=== PATIENT | female | born 1940 | race Caucasian/White ===

== ENCOUNTER 2017-08-11 11:44 | Inpatient (IN) ==
--- NOTE | 2017-08-11 11:50 | Emergency Department Note ---
Disposition Clinical Impression: Cerebrovascular accident Qualifiers: CVA mechanism: unspecified Qualified Code(s): I63.9 - Cerebral infarction, unspecified UTI (urinary tract infection) Qualifiers: Urinary tract infection type: acute cystitis Hematuria presence: without hematuria Qualified Code(s): N30.00 - Acute cystitis without hematuria Disposition: Admitted As Inpatient Condition: Serious Referrals: Anibal Salas DO [Primary Care Provider] - Time of Disposition: 13:56 Neuro HPI - General Chief Complaint: ED Altered Mental Status Stated Complaint: AMS Time Seen by Provider: 08/11/17 11:45 Source: family, EMS Mode of arrival: EMS Limitations: other (Aphasia) Nursing Notes Reviewed: Yes Vital Signs Reviewed: Yes - History of Present Illness HPI Narrative: 77-year-old was found on the bathroom floor by granddaughter this morning. The last time someone talked to her was last night. Patient according to squad has right-sided weakness and aphasia and ignoring her right side, right-sided facial droop. The patient does have a history of atrial fibrillation. Patient is on Xarelto. The patient did under a few words on transfer from the [facility] gurney to the bed. [facility] indicates that that was the first word she had spoken. Symptom Onset Unknown: Yes Timing confirmed by: family member Location: speech, right arm, right leg History of same: No Severity: moderate Quality: weakness Symptoms Improving: Yes Improves with: time Worsens with: none On Anticoagulants: Yes (Xarelto) Associated symptoms: Reports: denies other symptoms - Related Data Home Medications: Home Medications Medication Instructions Recorded Confirmed Allopurinol [Zyloprim 300 MG] 300 mg PO DAILY 06/21/15 08/11/17 Cyanocobalamin (B-12) [Vitamin B12] 1,000 mcg IM QWEEK 06/21/15 08/11/17 Diclofenac Potassium 50 mg PO DAILY 06/22/15 08/11/17 cloNIDine HCl [CloNIDine HCl] 0.1 mg PO DAILY 06/22/15 08/11/17 Liothyronine Sodium [Cytomel] 5 mcg PO DAILY 08/11/17 08/11/17 Rivaroxaban [Xarelto] 15 mg PO DAILY 08/11/17 08/11/17 Previous Rx's Medication Instructions Recorded Aspirin Enteric Coated [Aspirin EC] 81 mg PO DAILY #30 tablet. 06/23/15 Diltiazem CD (24hr) [Cardizem CD] 240 mg PO DAILY #30 cap.er.24h 06/23/15 Allergies/Adverse Reactions: Allergies Allergy/AdvReac Type Severity Reaction Status Date / Time No Known Allergies Allergy Verified 08/11/17 13:46 All systems ED: reviewed and negative except as stated. Constitutional: Denies: fever, chills, weakness, weight change Eyes: Denies: eye pain, eye discharge, vision change ENT ED: Denies: ear pain, throat pain, dental pain, hearing loss, epistaxis, congestion, dysphagia Cardiovascular: Denies: chest pain, palpitations, dyspnea on exertion, edema, syncope Respiratory: Denies: cough, dyspnea, wheezes, hemoptysis, stridor Gastrointestinal: Denies: abdominal pain, nausea, vomiting, diarrhea, constipation, hematemesis, melena, hematochezia Genitourinary: Denies: dysuria, frequency, hematuria, discharge Musculoskeletal: Denies: back pain, neck pain, arthralgia, myalgia Integumentary: Denies: rash, abrasion, lesions Neurological: Reports: weakness, confusion, other (Aphasic). Denies: headache, numbness, paresthesias, abnormal gait, vertigo Psychiatric: Denies: anxiety, depression, suicidal thoughts, homicidal thoughts , auditory hallucinations, visual hallucinations Endocrine: Denies: fatigue Hematological/Lymphatic: Denies: easy bleeding, easy bruising Allergic/Immunologic: Denies: facial swelling, urticaria Past Medical History - Past Medical History Medical history: Reports: CVA, hypertension, thyroid disease Surgical history: Reports: Psychiatric history: Reports: no psych history - Social History Smoking Status: Unknown if ever smoked Smokeless Tobacco Status: No Alcohol use: Reports: none Drug use: Reports: none Physical Exam - General Limitations: altered mental status General appearance: alert - Head Head exam: atraumatic, normocephalic, normal inspection - Eye Eye exam: Present: normal appearance, PERRL, EOMI - ENT ENT exam: normal exam, normal oropharynx, mucous membranes moist - Neck Neck exam: Present: normal inspection, full ROM, trachea midline - Chest Chest inspection: Present: normal inspection, symmetric chest wall rise - Respiratory Respiratory exam: Present: normal lung sounds bilaterally - Cardiovascular Cardiovascular exam: Present: regular rate, irregular rhythm - Abdominal Exam Abdominal exam: Present: soft, Non-Tender. Absent: tenderness, distention, guarding, rebound, rigidity - Extremities Exam Extremities exam: Present: normal inspection, full ROM. Absent: tenderness, pedal edema - Expanded Lower Extremity Exam Neurovascular/Tendon exam: Present: motor deficit (Right sided arm drift), other (Aphasic). Absent: sensory deficit, tendon deficit Gait: not tested/not observed - Back Exam Back exam: Present: normal inspection, full ROM. Absent: tenderness - Neurological Exam Neurological exam: Present: alert, motor sensory deficit - Psychiatric Psychiatric exam: Present: normal affect, normal mood - Skin Skin exam: Present: warm, dry, intact, normal color Course - Reevaluation(s) Reevaluation #1: 77-year-old found on the floor this morning with aphasia and right-sided weakness and right-sided neglect. Onset is unknown. NIH score is 11. Consultation obtained with neurology. Patient will be admitted. Time: 13:55 - Consultations Consultation #1: Discussed with Dr. Agosto neurology, patient is not a TPA candidate due to the unknown onset and treatment with anticoagulant Time: 13:55 Consultation #2: Discussed with Dr. Headley, admit Time: 14:09 Vital Signs Temperature 98.8 F 08/11/17 11:46 Pulse Rate 86 08/11/17 11:46 Respiratory Rate 17 08/11/17 11:46 Blood Pressure 186/80 08/11/17 11:46 O2 Sat by Pulse Oximetry 99 08/11/17 11:46 Temperature 98.8 F 08/11/17 11:46 Pulse Rate 78 08/11/17 13:13 Respiratory Rate 16 08/11/17 13:13 Blood Pressure 150/74 08/11/17 13:13 O2 Sat by Pulse Oximetry 98 08/11/17 13:13 Oxygen Delivery Oxygen Delivery Nasal Cannula Neuro Symptoms/Deficit - Lab Data Lab results reviewed: Yes I reviewed the patient's lab results. Result diagrams: 08/11/17 12:14 08/11/17 12:14 Lab Results 08/11/17 08/11/17 08/11/17 Range/Units 12:14 12:14 12:14 WBC 15.8 H (4.3-11.1) K/mcL RBC 4.29 (3.82-4.97) M/mcL Hgb 11.3 L (11.5-15.4) g/dL Hct 35.8 (35.3-44.9) % MCV 83.4 (83.0-100.0) fL MCH 26.3 L (28.0-33.3) pg MCHC 31.6 (31.6-35.5) g/dL RDW 14.9 H (11.5-14.5) % Plt Count 358 (140-400) K/mcL MPV 9.2 L (9.4-12.4) fL Immature Gran % 0.6 (0-4) % Seg Neutrophils % 82.7 % Lymphocytes % 11.5 % Monocytes % 5.0 % Eosinophils % 0.0 % Basophils % 0.2 % Neutrophils # 13.1 H (1.6-8.9) K/mcL Lymphocytes # 1.8 (0.6-4.6) K/mcL Monocytes # 0.8 (0.0-1.3) K/mcL Eosinophils # 0.0 (0.0-0.6) K/mcL Basophils # 0.0 (0.0-0.2) K/mcL PT 11.1 (9.4-12.1) Seconds INR 1.0 APTT 25.6 L (26.0-36.0) Seconds Sodium 136 (136-145) mEq/L Potassium 3.5 (3.5-5.1) mEq/L Chloride 104 (98-107) mEq/L Carbon Dioxide 24 (23-29) mEq/L BUN 27 H (8-23) mg/dL Creatinine 1.13 (0.60-1.20) mg/dL Est GFR ( Amer) 56 L (> 60) Est GFR (Non-Af Amer) 46 L (> 60) BUN/Creatinine Ratio 24 (6-26) Glucose 114 H (70-105) mg/dL Calculated Osmolality 288 (280-300) Calcium 9.2 (8.6-10.3) mg/dL Total Bilirubin 0.6 (0.3-1.0) mg/dL Direct Bilirubin 0.2 (0.0-0.2) mg/dL Indirect Bilirubin 0.4 (0.0-1.2) mg/dL AST 16 (13-39) Units/L ALT 13 (7-52) Units/L Alkaline Phosphatase 102 (34-104) Units/L Creatine Kinase (30-223) Units/L Troponin I 0.03 (< 0.04) ng/mL Serum Total Protein 6.6 (6.4-8.9) g/dL Albumin 4.0 (3.5-5.7) g/dL Globulin 2.6 (2.4-3.5) g/dL Albumin/Globulin Ratio 1.5 (1.1-2.2) Urine Color (Yellow) Urine Clarity (Clear) Urine pH (5.0-8.0) pH Units Ur Specific [place] (1.010-1.025) Urine Protein (Neg-Trace) mg/dL Urine Glucose (UA) (Normal) mg/dL Urine Ketones (Negative) mg/dL Urine Blood (Negative) Urine Nitrite (Negative) Urine Bilirubin (Negative) Urine Urobilinogen (Normal) mg/dL Ur Leukocyte Esterase (Negative) Urine Microscopic RBC (0-3) per hpf Urine Microscopic WBC (0-3) per hpf Ur Squamous Epith Cells (None-Few) per lpf Urine Bacteria (None-Few) per hpf Hyaline Casts (None-Few) per lpf Ur Culture Indicated? (NO) Urine Opiates Screen (Ofhumc=823) ng/mL Ur Barbiturates Screen (Plkxjl=644) ng/mL Ur Phencyclidine Scrn (Cutoff=25) ng/mL Ur Amphetamines Screen (Zhsyph=9512) ng/mL U Benzodiazepines Scrn (Ipsfzc=561) ng/mL Urine Cocaine Screen (Cutoff= 300) ng/mL U Marijuana (THC) Screen (Cutoff = 50) ng/mL Ethyl Alcohol < 10 (Less than 10) mg/dL 08/11/17 08/11/17 08/11/17 Range/Units 12:14 12:25 12:31 WBC (4.3-11.1) K/mcL RBC (3.82-4.97) M/mcL Hgb (11.5-15.4) g/dL Hct (35.3-44.9) % MCV (83.0-100.0) fL MCH (28.0-33.3) pg MCHC (31.6-35.5) g/dL RDW (11.5-14.5) % Plt Count (140-400) K/mcL MPV (9.4-12.4) fL Immature Gran % (0-4) % Seg Neutrophils % % Lymphocytes % % Monocytes % % Eosinophils % % Basophils % % Neutrophils # (1.6-8.9) K/mcL Lymphocytes # (0.6-4.6) K/mcL Monocytes # (0.0-1.3) K/mcL Eosinophils # (0.0-0.6) K/mcL Basophils # (0.0-0.2) K/mcL PT (9.4-12.1) Seconds INR APTT (26.0-36.0) Seconds Sodium (136-145) mEq/L Potassium (3.5-5.1) mEq/L Chloride (98-107) mEq/L Carbon Dioxide (23-29) mEq/L BUN (8-23) mg/dL Creatinine (0.60-1.20) mg/dL Est GFR ( Amer) (> 60) Est GFR (Non-Af Amer) (> 60) BUN/Creatinine Ratio (6-26) Glucose (70-105) mg/dL Calculated Osmolality (280-300) Calcium (8.6-10.3) mg/dL Total Bilirubin (0.3-1.0) mg/dL Direct Bilirubin (0.0-0.2) mg/dL Indirect Bilirubin (0.0-1.2) mg/dL AST (13-39) Units/L ALT (7-52) Units/L Alkaline Phosphatase (34-104) Units/L Creatine Kinase 116 (30-223) Units/L Troponin I (< 0.04) ng/mL Serum Total Protein (6.4-8.9) g/dL Albumin (3.5-5.7) g/dL Globulin (2.4-3.5) g/dL Albumin/Globulin Ratio (1.1-2.2) Urine Color Yellow (Yellow) Urine Clarity Cloudy A (Clear) Urine pH 5.5 (5.0-8.0) pH Units Ur Specific [place] 1.025 (1.010-1.025) Urine Protein Trace (Neg-Trace) mg/dL Urine Glucose (UA) Normal (Normal) mg/dL Urine Ketones Negative (Negative) mg/dL Urine Blood Large H (Negative) Urine Nitrite Positive A (Negative) Urine Bilirubin Negative (Negative) Urine Urobilinogen Normal (Normal) mg/dL Ur Leukocyte Esterase Small H (Negative) Urine Microscopic RBC 15-30 H (0-3) per hpf Urine Microscopic WBC 5-15 H (0-3) per hpf Ur Squamous Epith Cells Many H (None-Few) per lpf Urine Bacteria Many H (None-Few) per hpf Hyaline Casts Few (None-Few) per lpf Ur Culture Indicated? NO. A (NO) Urine Opiates Screen Negative (Shvfdx=416) ng/mL Ur Barbiturates Screen Negative (Tjedyc=812) ng/mL Ur Phencyclidine Scrn Negative (Cutoff=25) ng/mL Ur Amphetamines Screen Negative (Mmuxug=3013) ng/mL U Benzodiazepines Scrn Negative (Ffyxwb=352) ng/mL Urine Cocaine Screen Negative (Cutoff= 300) ng/mL U Marijuana (THC) Screen Negative (Cutoff = 50) ng/mL Ethyl Alcohol (Less than 10) mg/dL - Radiology Data Radiology results reviewed: Yes I reviewed the patient's radiology results. Cervical Spine CT 08/11/17 11:46 IMPRESSION: No acute abnormality of the cervical spine. D/ / Calvin Shukla MD / Calvin Shukla MD Interpreting Provider: Calvin Shukla MD Chest X-Ray 08/11/17 11:46 IMPRESSION: No acute cardiopulmonary process. D/ / 08/11/2017 12:16:01 Luis Rob MD / rich Interpreting Provider: Luis Rob MD Head CT 08/11/17 11:46 IMPRESSION: No acute intracranial abnormality with stable chronic findings as described. D/ / Jannette Santamaria MD / Jannette Santamaria MD Interpreting Provider: Jannette Santamaria MD - EKG Data EKG attestation: Yes I reviewed and interpreted this EKG. EKG shows normal: sinus rhythm Rate: normal Rhythm: NSR Posey/QRS: normal Interpretation: no acute changes, nonspecific ST-T wave changes NIH Stroke Scale - Level of Consciousness LOC: Alert - LOC Questions LOC Questions: Answers both incorrectly - LOC Commands LOC Commands: Performs one correctly - Best Gaze Best Gaze: Normal - Visual Visual: No visual loss - Facial Palsy Facial Palsy: Minor asymmetry on smiling, flattened nasolabial fold - Motor Arms Motor Arm-Left: No drift for 10 seconds Motor Arm-Right: Some effort against gravity, limb drifts to bed - Motor Legs Motor Leg-Left: No drift for 5 seconds Motor Leg-Right: No drift for 5 seconds - Limb Ataxia Limb Ataxia: Absent of affected limb too weak to perform exam - Sensory Sensory: Normal - Best Language Best Language: Severe aphasia. Examiner CAN NOT identify pictures from response - Dysarthria Dysarthria: Severe, slurred speech unintelligible or mute - Extinction and Inattention Extinction and Inattention: Inattention or extinction in ONE modality - NIHSS Total Score NIHSS Total Score: 11 TPA Checklist - Source Information Source: Family - Eligibilty for IV tPA 1. LKW equal to or less than 4.5 hours be before treatment: No - LKW: 3-4.5 hrs Add. Warnings/Precautions Patient/family understanding: The patient/family members have been counseled and understood the risk, benefit , and alternatives of treatment.
[2017-08-11 12:28] LABS: Basophils % 0.2 %; Hematocrit 35.8 % (35.3-44.9); Hemoglobin 11.3 g/dL (11.5-15.4); Immature Granulocytes % 0.6 % (0-4); Lymphocytes # 1.8 K/mcL (0.6-4.6); Lymphocytes % 11.5 %; Mean Corpuscular HGB Conc 31.6 g/dL (31.6-35.5); Mean Corpuscular Hemoglobin 26.3 pg (28.0-33.3); Mean Corpuscular Volume 83.4 fL (83.0-100.0); Mean Platelet Volume 9.2 fL (9.4-12.4); Monocytes # 0.8 K/mcL (0.0-1.3); Neutrophils # 13.1 K/mcL (1.6-8.9); Platelet Count 358 K/mcL (140-400); Red Blood Count 4.29 M/mcL (3.82-4.97); Red Cell Distribution Width 14.9 % (11.5-14.5); Segmented Neutrophils % 82.7 %
[2017-08-11 12:35] LABS: Prothrombin Time 11.1 Seconds (9.4-12.1)
[2017-08-11 12:37] LABS: Activated Partial Thrombo Time 25.6 Seconds (26.0-36.0)
[2017-08-11 12:43] LABS: Bilirubin,Urine Negative (Negative); Blood,Urine Large (Negative); Clarity,Urine Cloudy (Clear); Color,Urine Yellow (Yellow); Glucose,Urine (UA) Normal (Normal); Ketones,Urine Negative (Negative); Leukocyte Esterase,Urine Small (Negative); Nitrite,Urine Positive (Negative); PH,Urine 5.5 pH Units (5.0-8.0); Protein,Urine Trace mg/dL (Neg-Trace); Specific Gravity,Urine 1.025 (1.010-1.025); Urobilinogen,Urine Normal (Normal)
[2017-08-11 12:45] LABS: Bacteria,Urine Many per hpf (None-Few); Hyaline Casts,Urine Few per lpf (None-Few); RBC,Urine 15-30 per hpf (0-3); Squamous Epithelial Cell,Urine Many per lpf (None-Few)
[2017-08-11 12:48] LABS: Alanine Aminotransferase 13 Units/L (7-52); Albumin/Globulin Ratio 1.5 (1.1-2.2); Alkaline Phosphatase 102 Units/L (34-104); Aspartate Amino Transferase 16 Units/L (13-39); BUN/Creatinine Ratio 24 (6-26); Bilirubin,Direct 0.2 mg/dL (0.0-0.2); Bilirubin,Indirect 0.4 mg/dL (0.0-1.2); Bilirubin,Total 0.6 mg/dL (0.3-1.0); Blood Urea Nitrogen 27 mg/dL (8-23); Calcium 9.2 mg/dL (8.6-10.3); Carbon Dioxide 24 mEq/L (23-29); Chloride 104 mEq/L (98-107); Ethanol < 10 mg/dL (Less than 10); Globulin 2.6 g/dL (2.4-3.5); Glucose 114 mg/dL (70-105); Osmolality,Calculated 288 (280-300); Potassium 3.5 mEq/L (3.5-5.1); Sodium 136 mEq/L (136-145); Total Protein 6.6 g/dL (6.4-8.9); eGFR For African Americans 56 (> 60); eGFR For Non-African Americans 46 (> 60)
[2017-08-11 12:50] LABS: Troponin I 0.03 ng/mL (< 0.04)
[2017-08-11 12:55] LABS: Amphetamine Screen,Urine Negative ng/mL (Cutoff=1000); Barbiturate Screen,Urine Negative ng/mL (Cutoff=200); Benzodiazepines Screen,Urine Negative ng/mL (Cutoff=200); Cannabinoid Screen,Urine Negative ng/mL (Cutoff = 50); Cocaine Screen,Urine Negative ng/mL (Cutoff= 300); Opiate Screen,Urine Negative ng/mL (Cutoff=300); Phencyclidine Screen,Urine Negative ng/mL (Cutoff=25)
[2017-08-11] MEDS ORDERED: cefTRIAXone 1,000 MG in Water for inj. (sterile) 20 ML 10 ML IVP ONE (14:08)
--- NOTE | 2017-08-11 18:29 | Internal Med History&Physical ---
Date of Encounter: 08/11/17 Time of Encounter: 18:00 Internal Medicine - H&P: HPI Chief complaint: Neurological deficits/dysarthria Admitted From: Home Plans for Post Hospital Care: Transfer Care Home Facility History of present illness: Patient is a 77-year-old female with past medical history significant for recently diagnosed CVA on 06/20/17 started on Xarelto with newly diagnosed paroxysmal atrial fibrillation and hypertension since to the ER on 08/11/17 with neurological deficits. Patient was found down in the bathroom earlier this morning, 7:30 AM, by family member. Patient was noted to have dysarthria and abnormal gait. Patient was later awakened by her son approximately 2 hours later with dysarthria and not being able to communicate. Mrs.: Patient was brought to the ER for evaluation. In the ER, labs were unremarkable other than leukocytosis with white blood cell count of 15.8. Head CT showed no acute findings of intracranial abnormalities was stable chronic findings. Patient will be admitted to medical surgical floor for CVA and workup. Past Med Surg Social Fam HX - Past Medical History Medical history: CVA, hypertension, thyroid disease Additional medical history: macular dx Psychiatric history: no psych history - Past Surgical History Surgical History: - Social History Smoking Status: Unknown if ever smoked Smokeless Tobacco Status: No Alcohol use: none Drug use: none - Family History Mother Adopted: No Family Member Ethnicity: Non- Living Status: Hx Family Endocrine Disorder: Yes (cancer) Father Living Status: Internal Medicine - H&P: Meds Allopurinol [Zyloprim 300 MG] 300 mg PO DAILY 06/21/15 [History] Cyanocobalamin (B-12) [Vitamin B12] 1,000 mcg IM QWEEK 06/21/15 [History] Diclofenac Potassium 50 mg PO DAILY 06/22/15 [History] cloNIDine HCl [CloNIDine HCl] 0.1 mg PO DAILY 06/22/15 [History] Aspirin Enteric Coated [Aspirin EC] 81 mg PO DAILY #30 tablet.dr 06/23/15 [Rx] Diltiazem CD (24hr) [Cardizem CD] 240 mg PO DAILY #30 cap.er.24h 06/23/15 [Rx] Liothyronine Sodium [Cytomel] 5 mcg PO DAILY 08/11/17 [History] Rivaroxaban [Xarelto] 15 mg PO DAILY 08/11/17 [History] 3 Allergy/AdvReac Type Severity Reaction Status Date / Time No Known Allergies Allergy Verified 08/11/17 13:46 All Systems PM: A 10-system review of systems was performed and is negative for pertinent findings except as documented above in the HPI. - Constitutional Vitals: Temp Pulse Resp BP Pulse Ox 99.5 F 79 20 189/83 100 08/11/17 16:35 08/11/17 17:15 08/11/17 17:15 08/11/17 17:15 08/11/17 17:15 General appearance: Present: A&O X 1. Absent: answers questions appropriately - Head Head exam: Present: atraumatic - Eye Eye exam: Present: EOMI, PERRL. Absent: nystagmus - ENT ENT exam: Present: mucous membranes moist - Respiratory Respiratory exam: Present: CTAB. Absent: accessory muscle use, rales, rhonchi, wheezes - Cardiovascular Cardiovascular exam: Present: RRR, +S1, +S2. Absent: diastolic murmur, gallop, rubs, systolic murmur - GI/Abdominal GI/Abdominal exam: Present: normal bowel sounds, soft, no peritoneal signs. Absent: distended, tenderness - Extremities Exam Extremities exam: Absent: pedal edema - Expanded Neurological Exam Neurological exam expanded: Present: expressive aphasia Patient oriented to: Present: person Speech: Present: expressive aphasia Cranial Nerves: EOM's intact PM: Normal, nystagmus PM: Normal, tongue deviation PM: Abnormal Left Sensory exam: lower extremity light touch: Normal, upper extremity light touch: Normal Neuro motor strength exam: LUE: 3, RUE: 3, LLE: 3, RLE: 3 - Psychiatric Psychiatric exam: Present: normal mood - Skin Skin exam: Present: normal color Internal Med - H&P Results - Labs CBC & Chem 7: 08/11/17 12:14 08/11/17 12:14 - Assessment and plan (1) Dysarthria Current Visit: Yes Status: Acute Assessment and plan: Patient with dysarthria and with bilateral lower and upper extremity weakness Patient recently diagnosed with CVA on 06/20/17 and was started on Xarelto CT of the head on this admission showed no acute findings. Will order MRI of the brain in addition to MRA of the head/neck Neurology has been consulted from the ER and appreciate recommendations (2) HTN (hypertension) Current Visit: No Status: Acute Assessment and plan: Continue home medications Qualifiers: Hypertension type: essential hypertension Qualified Code(s): I10 - Essential (primary) hypertension (3) Hypothyroidism Current Visit: No Status: Acute Assessment and plan: Continue home medication Qualifiers: Hypothyroidism type: unspecified Qualified Code(s): E03.9 - Hypothyroidism , unspecified (4) Paroxysmal atrial fibrillation Current Visit: No Status: Acute Assessment and plan: Continue Cardizem in addition to Xarelto (5) DVT prophylaxis Current Visit: No Status: Acute Assessment and plan: On Xarelto as above - Time Spent With Patient Total time spent is greater than 50% in coordination of care (as documented) at patient's floor/unit and/or counseling patient:
[2017-08-11] MEDS ORDERED: Naloxone 0.4 MG/ML INJ IVP PRN (18:44)
[2017-08-11] MEDS ORDERED: Cyanocobalamin (B-12) 1,000 MCG/ML VIAL IM SCH (18:45)
[2017-08-12 04:16] LABS: Basophils % 0.3 %; Eosinophils # 0.1 K/mcL (0.0-0.6); Eosinophils % 0.4 %; Hematocrit 32.5 % (35.3-44.9); Hemoglobin 10.5 g/dL (11.5-15.4); Immature Granulocytes % 0.4 % (0-4); Lymphocytes # 2.2 K/mcL (0.6-4.6); Lymphocytes % 19.9 %; Mean Corpuscular HGB Conc 32.3 g/dL (31.6-35.5); Mean Corpuscular Hemoglobin 26.5 pg (28.0-33.3); Mean Corpuscular Volume 82.1 fL (83.0-100.0); Mean Platelet Volume 9.3 fL (9.4-12.4); Monocytes # 0.9 K/mcL (0.0-1.3); Platelet Count 319 K/mcL (140-400); Red Blood Count 3.96 M/mcL (3.82-4.97); Red Cell Distribution Width 14.9 % (11.5-14.5)
[2017-08-12 04:30] LABS: BUN/Creatinine Ratio 24 (6-26); Blood Urea Nitrogen 17 mg/dL (8-23); Calcium 8.9 mg/dL (8.6-10.3); Carbon Dioxide 25 mEq/L (23-29); Chloride 104 mEq/L (98-107); Glucose 100 mg/dL (70-105); Osmolality,Calculated 284 (280-300); Potassium 3.5 mEq/L (3.5-5.1); Sodium 136 mEq/L (136-145); eGFR For African Americans > 60 (> 60); eGFR For Non-African Americans > 60 (> 60)
[2017-08-12] MEDS ORDERED: *HR* Labetalol 20 MG/4 ML SYRINGE IVP ONE (07:32)
[2017-08-12] MEDS: *HR* Rivaroxaban 15 MG TABLET PO SCH (09:58)
[2017-08-12] MEDS: cloNIDine HCl 0.1 MG TABLET PO SCH (09:58)
[2017-08-12] MEDS: Diltiazem CD (24hr) 240 MG CAPSULE PO SCH (09:58)
[2017-08-12] MEDS: Aspirin Enteric Coated 81 MG Tablet PO SCH (09:58)
--- NOTE | 2017-08-12 10:38 | Neurology - Consult Note ---
Date of Encounter: 08/12/17 Time of Encounter: 10:30 Assessment and Plan (1) Cerebrovascular accident Current Visit: Yes Status: Acute This patient has undoubtedly experienced an acute left hemispheric event. I am concerned about an embolic phenomenon particularly since she has significant aphasia without much weakness. However, vasospasm due to uncontrolled hypertension may also be contributing. Her blood pressure during this admission has been as high as 200/100. MRI of the brain, as well as MRA of the head and neck are all pending. Patient had a recent echocardiogram on do not feel it necessary to repeat this. Further recommendations will be made pending the MRI. If it appears as though this may have been an embolic phenomenon I would recommend escalating the dose of Xarelto to 20 mg daily, as well as adding Plavix. Maintain stroke protocol nursing orders. I will reevaluate her tomorrow. Qualifiers: CVA mechanism: unspecified Qualified Code(s): I63.9 - Cerebral infarction, unspecified History of Present Illness HPI: The chart was reviewed, the patient was seen and examined. A relative's is present who helps to corroborate details as patient is a phasic. Ms. Neumann is a 77 year old female who was recently diagnosed with stroke on 06/20/2017 via MRI is now hospitalized for acute aphasia. She was just started on Xarelto on 06/20/2017. Apparently she was found down in the bathroom earlier on the morning of admission at about 7:30 by family member. However the exact time of the event is not known. Patient presented with aphasia and gait abnormalities. She is completely aphasic now and is not able provide any input at all. I did review the previous MRI scan of the brain which was completed on 06/20/2017 which did reveal an acute infarct in the right hippocampus as well as the right thalamus. There is also small infarct in the right cerebellar vermis. There are multiple old lacunar infarcts scattered bilaterally. Chronic ischemic white matter changes were present. She has been extremely hypertensive during her last hospital visit as well as this hospital visit with blood pressure readings ranging as high as 200/100. It seems that according to nursing yesterday she was able to speak minimally elevated today she is completely aphasic. MRI scan of the brain MRA scan of the brain and neck are all pending. Currently she is getting aspirin and Xarelto. Past Med Surg Social Fam HX - Past Medical History Medical history: CVA, hypertension, thyroid disease Additional medical history: macular dx Psychiatric history: no psych history - Past Surgical History Surgical History: - Social History Smoking Status: Unknown if ever smoked Smokeless Tobacco Status: No Alcohol use: none Drug use: none - Family History Mother Adopted: No Family Member Ethnicity: Non- Living Status: Hx Family Endocrine Disorder: Yes (cancer) Father Living Status: Medications and Allergies Allopurinol [Zyloprim 300 MG] 300 mg PO DAILY 06/21/15 [History] Cyanocobalamin (B-12) [Vitamin B12] 1,000 mcg IM QWEEK 06/21/15 [History] Diclofenac Potassium 50 mg PO DAILY 06/22/15 [History] cloNIDine HCl [CloNIDine HCl] 0.1 mg PO DAILY 06/22/15 [History] Aspirin Enteric Coated [Aspirin EC] 81 mg PO DAILY #30 tablet.dr 06/23/15 [Rx] Diltiazem CD (24hr) [Cardizem CD] 240 mg PO DAILY #30 cap.er.24h 06/23/15 [Rx] Liothyronine Sodium [Cytomel] 5 mcg PO DAILY 08/11/17 [History] Rivaroxaban [Xarelto] 15 mg PO DAILY 08/11/17 [History] 3 Allergy/AdvReac Type Severity Reaction Status Date / Time No Known Allergies Allergy Verified 08/11/17 13:46 ROS unobtainable: other (The patient is completely aphasic.) All Systems: The remainder of the systems were reviewed and are negative Physical Examination - Vital Signs Vital Signs: Initial Vital Signs Temp Pulse Resp BP Pulse Ox 98.8 F 86 17 186/80 99 08/11/17 11:46 08/11/17 11:46 08/11/17 11:46 08/11/17 11:46 08/11/17 11:46 - Neurologic Detailed motor examination: other (The patient seems to have equal tone of the upper and lower extremities however it is difficult to get a true strength assessment because of her difficulty following commands. However she appears to have equal tone.) Detailed sensory examination: other (difficult to assess in an aphasic patient.) Reflexes: Biceps: 2+ (Symmetrical), Triceps: 2+ (Symmetrically), Brachioradialis : 2+ (Symmetrically), Patella: 2+ (Symmetrically), Achilles: 1+ (Symmetrically) Mental Status Examination: Patient is awake she does make eye contact she is aphasic. She does follow some simple commands however not consistently. At this time she is not lethargic. Cranial nerve examination: PERRL, EOMI, corneal reflexes brisk symmetrically, no facial asymmetry is present Results - Laboratory Findings CBC and BMP: 08/12/17 03:51 08/12/17 03:51 Abnormal lab findings: Abnormal lab results WBC 11.3 K/mcL (4.3-11.1) H 08/12/17 03:51 Hgb 10.5 g/dL (11.5-15.4) L 08/12/17 03:51 Hct 32.5 % (35.3-44.9) L 08/12/17 03:51 MCV 82.1 fL (83.0-100.0) L 08/12/17 03:51 MCH 26.5 pg (28.0-33.3) L 08/12/17 03:51 RDW 14.9 % (11.5-14.5) H 08/12/17 03:51 MPV 9.3 fL (9.4-12.4) L 08/12/17 03:51 APTT 25.6 Seconds (26.0-36.0) L 08/11/17 12:14 POC Glucose 116 mg/dL (70-99) H 08/11/17 11:52 Urine Clarity Cloudy (Clear) A 08/11/17 12:25 Urine Blood Large (Negative) H 08/11/17 12:25 Urine Nitrite Positive (Negative) A 08/11/17 12:25 Ur Leukocyte Esterase Small (Negative) H 08/11/17 12:25 Urine Microscopic RBC 15-30 per hpf (0-3) H 08/11/17 12:25 Urine Microscopic WBC 5-15 per hpf (0-3) H 08/11/17 12:25 Ur Squamous Epith Cells Many per lpf (None-Few) H 08/11/17 12:25 Urine Bacteria Many per hpf (None-Few) H 08/11/17 12:25 Ur Culture Indicated? NO. (NO) A 08/11/17 12:25 Consult Discharge Plan - Plan
--- NOTE | 2017-08-12 14:48 | Internal Med Progress Note ---
<Ulysses Cordero - Last Filed: 08/12/17 14:43> Date of Encounter: 08/12/17 Time of Encounter: 08:30 - Assessment and plan (1) Cerebrovascular accident Status: Acute Assessment and plan: Patient acute aphasic. CT showed no acute abnormalities. Neurology consulted, notes they believe this is an acute left hemispheric event. MRI of the brain, as well as MRA of the head and neck are all pending. Neurology recommending if MRI shows an embolic phenomenon escalating Xarelto to 20 mg daily, as well as adding Plavix. Maintain stroke protocol nursing orders. Neurology to continue following. Patient was on Voltaren, we have discontinued this and do not recommend restarting upon discharge. Qualifiers: CVA mechanism: unspecified Qualified Code(s): I63.9 - Cerebral infarction, unspecified (2) Paroxysmal atrial fibrillation Status: Acute Assessment and plan: Continue Cardizem in addition to Xarelto (3) HTN (hypertension) Status: Acute Assessment and plan: Permissive HTN in the setting of CVA. May give additional labetolol if SBP >200. Qualifiers: Hypertension type: essential hypertension Qualified Code(s): I10 - Essential (primary) hypertension (4) DVT prophylaxis Status: Acute Assessment and plan: On Xarelto as above (5) Hypothyroidism Status: Acute Assessment and plan: Continue home medication Qualifiers: Hypothyroidism type: unspecified Qualified Code(s): E03.9 - Hypothyroidism , unspecified - Time Spent With Patient Total time spent is greater than 50% in coordination of care (as documented) at patient's floor/unit and/or counseling patient: - Subjective Interval history: Patient seen and examined, lying in bed, nonverbal. Family member at bedside, notes that patient had called 2 nights ago not feeling well and then they found her in the bath floor yesterday morning around 7am. Patient was recently diagnosed with stroke on 06/20/2017 via MRI. She was started on Xarelto on 06/20/2017. - Constitutional Vitals: Temp Pulse Resp BP Pulse Ox 98.4 F 67 20 141/67 98 08/12/17 11:25 08/12/17 14:09 08/12/17 14:09 08/12/17 14:09 08/12/17 14:09 General appearance: Present: A&O X 0, no acute distress. Absent: answers questions appropriately - Head Head exam: Present: normal inspection, normocephalic - Eye Eye exam: Present: PERRL, conjuntiva pink, sclera anicteric Pupils: Present: PERRL - ENT ENT exam: Present: mucous membranes dry - Neck Neck exam general surgery: Present: normal inspection, supple, trachea midline - Respiratory Respiratory exam: Present: CTAB. Absent: accessory muscle use, respiratory distress, rhonchi, wheezes - Cardiovascular Cardiovascular exam: Present: RRR, +S1, +S2. Absent: diastolic murmur, gallop, rubs, systolic murmur - GI/Abdominal GI/Abdominal exam: Present: normal bowel sounds, soft. Absent: distended, firm , tenderness - Extremities Exam Extremities exam: Present: warm. Absent: cyanotic, pedal edema - Neurological Exam Additional comments: Patient is awake, opens eyes on voice command. She is aphasic. She does follow some simple commands such as bilateral hand [employer], BUE flexion, and BLE ankle flexion. Limited strength testing of BUE, though strength did appear equal. Bilateral upper and lower extremity reflexes symmetrical. Corneal reflex brisk and symmetric. Patient not able to complete CN testing. - Skin Skin exam: Present: dry, intact, normal color, warm. Absent: cyanosis Internal Medicine: Result - Labs CBC & Chem 7: 08/12/17 03:51 08/12/17 03:51 Labs: Short CBC 08/12/17 Range/Units 03:51 WBC 11.3 H (4.3-11.1) K/mcL Hgb 10.5 L (11.5-15.4) g/dL Hct 32.5 L (35.3-44.9) % Plt Count 319 (140-400) K/mcL Neutrophils # 8.0 (1.6-8.9) K/mcL BMP 08/12/17 03:51 Sodium 136 Potassium 3.5 Chloride 104 Carbon Dioxide 25 BUN 17 Creatinine 0.70 Glucose 100 Calcium 8.9 - ABG Interpretation ABG results: PT/INR, D-dimer PT 11.1 Seconds (9.4-12.1) 08/11/17 12:14 Consult Discharge Plan - Plan Instructions: Atrial Fibrillation (DC), Urinary Tract Infection in Women (DC), Hypothyroidism (DC), Ischemic Stroke (DC), Ischemic Stroke (GEN), Chronic Dysphagia (GEN), Chronic Hypertension (DC) Referrals: Anibal Salas DO [Primary Care Provider] - <Rose Brown - Last Filed: 08/13/17 18:55> Date of Encounter: 08/13/17 - Assessment and plan (1) Cerebrovascular accident Status: Acute Qualifiers: CVA mechanism: unspecified Qualified Code(s): I63.9 - Cerebral infarction, unspecified (2) Paroxysmal atrial fibrillation Status: Acute (3) HTN (hypertension) Status: Acute Qualifiers: Hypertension type: essential hypertension Qualified Code(s): I10 - Essential (primary) hypertension (4) DVT prophylaxis Status: Acute (5) Hypothyroidism Status: Acute Qualifiers: Hypothyroidism type: unspecified Qualified Code(s): E03.9 - Hypothyroidism , unspecified - Time Spent With Patient Total time spent is greater than 50% in coordination of care (as documented) at patient's floor/unit and/or counseling patient: - Constitutional Vitals: Temp Pulse Resp BP Pulse Ox 98.4 F 65 16 118/65 96 08/13/17 15:42 08/13/17 15:42 08/13/17 15:42 08/13/17 15:42 08/13/17 15:42 Internal Medicine: Result - Labs CBC & Chem 7: 08/12/17 03:51 08/12/17 03:51 - ABG Interpretation ABG results: PT/INR, D-dimer PT 11.1 Seconds (9.4-12.1) 08/11/17 12:14 - Impressions Impressions Head MRA 08/12/17 13:35 IMPRESSION: Numerous foci of acute infarct in the left hemisphere as described. This is superimposed on multifocal old infarcts and multifocal small-vessel ischemic change bilaterally. No focal significant arterial narrowing in the neck Multifocal narrowing involving the distal vertebral arteries bilaterally. There is also focal lobular fullness of the distal left vertebral artery near the PICA origin. A small fusiform aneurysm should be considered. There is no definitive flow signal noted distal to the M1 segments bilaterally. Although some of this could be due to artifact, developing occlusive change should be considered. Perhaps a CT angiogram would be more helpful for complete evaluation. Critical results were called by Dr. Don Tony to Jaycob Curtis On 08/12/2017 at 19:59. D/ / Don Tony / Don Tony Interpreting Provider: Don Tony Neck MRA 08/12/17 13:36 IMPRESSION: Numerous foci of acute infarct in the left hemisphere as described. This is superimposed on multifocal old infarcts and multifocal small-vessel ischemic change bilaterally. No focal significant arterial narrowing in the neck Multifocal narrowing involving the distal vertebral arteries bilaterally. There is also focal lobular fullness of the distal left vertebral artery near the PICA origin. A small fusiform aneurysm should be considered. There is no definitive flow signal noted distal to the M1 segments bilaterally. Although some of this could be due to artifact, developing occlusive change should be considered. Perhaps a CT angiogram would be more helpful for complete evaluation. Critical results were called by Dr. Don Tony to Jaycob Curtis On 08/12/2017 at 19:59. D/ / Don Tony / Don Tony Interpreting Provider: Don Tony Brain MRI 08/12/17 13:37 IMPRESSION: Numerous foci of acute infarct in the left hemisphere as described. This is superimposed on multifocal old infarcts and multifocal small-vessel ischemic change bilaterally. No focal significant arterial narrowing in the neck Multifocal narrowing involving the distal vertebral arteries bilaterally. There is also focal lobular fullness of the distal left vertebral artery near the PICA origin. A small fusiform aneurysm should be considered. There is no definitive flow signal noted distal to the M1 segments bilaterally. Although some of this could be due to artifact, developing occlusive change should be considered. Perhaps a CT angiogram would be more helpful for complete evaluation. Critical results were called by Dr. Don Tony to Jaycob Curtis On 08/12/2017 at 19:59. D/ / Don Tony / Don Tony Interpreting Provider: Don Tony - Attending Attestation I examined this patient and my medical decision-making was reviewed with the Resident Physician. I agree with the documented findings, disposition and treatment plan as described except to the extent set forth below.
--- NOTE | 2017-08-13 07:03 | Electrocardiograph Report ---
[address] [address] Test Date: 2017-08-11 Pat Name: Darlene Neumann Department: 104 Room: [facility] Gender: F Director Style: RYAN : 1940 Requested By: Norman Son Order Number: [id number] Reading MD: Dilip Gonzáles Measurements Intervals [place] Rate: 79 P: 29 LA: 188 QRS: 9 QRSD: 88 T: 209 QT: 360 QTc: 395 Interpretive Statements SINUS RHYTHM Electronically Signed On 08-13-2017 7:02:21 EDT by Dilip Gonzáles
--- NOTE | 2017-08-13 08:30 | Neurology Progress Note ---
Date of Encounter: 08/13/17 Time of Encounter: 08:27 Assessment and Plan (1) Cerebrovascular accident Current Visit: Yes Status: Acute Suspect cardioembolic source. Patient has newly diagnosed A. fib. Earlier in June she suffered several acute infarcts involving the right calf is right cerebellar vermis in the right thalamus. The more recent MRI scan reveals multiple acute infarcts scattered throughout the territory of the left middle cerebral artery. Most of the injury appears to be sustained by the left anterior temporal lobe. At this juncture I would recommend increasing his Xarelto up to 20 mg daily, also consider adding Plavix to her regimen. 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 There was no evidence of cerebral hemorrhage. At this time he cardioembolic phenomena are the presiding issue. Since we have already determined that she has A. fib and long-term anticoagulation will be necessary, I did not find it necessary to order a SOPHY at this time. I would however recommend advancing her activity to tolerance as to help avoid deconditioning during her hospital stay. Qualifiers: CVA mechanism: unspecified Qualified Code(s): I63.9 - Cerebral infarction, unspecified Subjective Interval history: The chart was reviewed, the patient was seen and examined. MRI scan along with MRA of the brain and neck were completed yesterday. The MRI scan of the brain revealed multiple acute infarcts in the territory of the left middle cerebral artery particularly involving the anterior left temporal lobe. Also revealed several old infarcts in the right cerebral hemisphere. Certainly these findings are consistent with a cardioembolic source. We know that she was newly diagnosed with A. fib back in early June. 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 Patient this morning however is awake and alert however remains aphasic. Currently she is undergoing a swallowing assessment with the therapist's present in the room now. Otherwise no changes in her examination. She seems to be having more difficulty swallowing thin liquids with a slight bit of choking. Her son is present in the room today with her. Objective - Constitutional Vitals: Temp Pulse Resp BP Pulse Ox 98.9 F 76 16 178/78 95 08/13/17 07:02 08/13/17 07:02 08/13/17 07:02 08/13/17 07:02 08/13/17 07:02 - Neurological Exam Motor Examination: Present: other (The patient seems to have equal tone of the upper and lower extremities however it is difficult to get a true strength assessment because of her difficulty following commands. However she appears to have equal tone.) Sensation intact: Present: other (difficult to assess in an aphasic patient.) Mental Status Examination: Present: awake, alert. Absent: no aphasia (Patient does have profound expressive aphasia as she is unable to speak at all. However she does comprehend some commands and follow them.) Cranial nerve examination: Present: PERRL, EOMI, corneal reflexes brisk symmetrically, no facial asymmetry is present Results - Laboratory Findings CBC and BMP: 08/12/17 03:51 08/12/17 03:51 Abnormal lab findings: Abnormal lab results WBC 11.3 K/mcL (4.3-11.1) H 08/12/17 03:51 Hgb 10.5 g/dL (11.5-15.4) L 08/12/17 03:51 Hct 32.5 % (35.3-44.9) L 08/12/17 03:51 MCV 82.1 fL (83.0-100.0) L 08/12/17 03:51 MCH 26.5 pg (28.0-33.3) L 08/12/17 03:51 RDW 14.9 % (11.5-14.5) H 08/12/17 03:51 MPV 9.3 fL (9.4-12.4) L 08/12/17 03:51 APTT 25.6 Seconds (26.0-36.0) L 08/11/17 12:14 POC Glucose 116 mg/dL (70-99) H 08/11/17 11:52 Urine Clarity Cloudy (Clear) A 08/11/17 12:25 Urine Blood Large (Negative) H 08/11/17 12:25 Urine Nitrite Positive (Negative) A 08/11/17 12:25 Ur Leukocyte Esterase Small (Negative) H 08/11/17 12:25 Urine Microscopic RBC 15-30 per hpf (0-3) H 08/11/17 12:25 Urine Microscopic WBC 5-15 per hpf (0-3) H 08/11/17 12:25 Ur Squamous Epith Cells Many per lpf (None-Few) H 08/11/17 12:25 Urine Bacteria Many per hpf (None-Few) H 08/11/17 12:25 Ur Culture Indicated? NO. (NO) A 08/11/17 12:25 Consult Discharge Plan - Plan Referrals: Anibal Salas, [Primary Care Provider] -
[2017-08-13] MEDS ORDERED: Isovue-370 500 ML INFUS..BTL IV ONE (08:35)
[2017-08-13] MEDS: Aspirin Enteric Coated 81 MG Tablet PO SCH ×2 (10:22→15:04)
[2017-08-13] MEDS: Diltiazem CD (24hr) 240 MG CAPSULE PO SCH (10:22)
[2017-08-13] MEDS: *HR* Rivaroxaban 15 MG TABLET PO SCH ×2 (10:22→15:04)
[2017-08-13] MEDS: cloNIDine HCl 0.1 MG TABLET PO SCH (10:22)
--- NOTE | 2017-08-13 14:11 | Discharge Summary ---
<Ulysses Cordero - Last Filed: 08/13/17 15:38> - NOTES TO OUTPATIENT PROVIDER Notes to Outpatient Provider: Admitted for acute CVA, transferring to [place] with concern of possible aneurysm on MRA in addition to acute infarct. Orders not resulted at time of discharge: Pending orders 08/13/17 08:35 CT angio head [CT] Stat CT angio neck [CT] Stat Date of Encounter: 08/13/17 Time of Encounter: 08:40 - Discharge Diagnosis (1) Cerebrovascular accident Priority: Primary Status: Acute Qualifiers: CVA mechanism: unspecified Qualified Code(s): I63.9 - Cerebral infarction, unspecified (2) Paroxysmal atrial fibrillation Priority: Secondary Status: Acute (3) HTN (hypertension) Priority: Secondary Status: Acute Qualifiers: Hypertension type: essential hypertension Qualified Code(s): I10 - Essential (primary) hypertension (4) DVT prophylaxis Priority: Secondary Status: Acute (5) Hypothyroidism Priority: Secondary Status: Acute Qualifiers: Hypothyroidism type: unspecified Qualified Code(s): E03.9 - Hypothyroidism , unspecified Hospital course: Ms. Neumann is a 77 year old female who was recently diagnosed with stroke on 03/2017 via MRI currently admitted for acute aphasia. She was started on Xarelto on 06/20/2017. Son present at patient's bedsides, as she is aphasic he is helping to recant the situation. Apparently she was found down in the bathroom earlier on the morning of admission at about 7:30 by family. Patient presented with aphasia and gait abnormalities. She is completely aphasic and is not able provide any input at all. MRI from 06/20/2017 revealed an acute infarct in the right hippocampus as well as the right thalamus and a small infarct in the right cerebellar vermis; in addition to multiple old lacunar infarcts scattered bilaterally; Chronic ischemic white matter changes were present. Per nursing reports patient has had a few intermittent episodes of limited speech. She has been extremely hypertensive with blood pressure readings ranging as high as 200/100, conservitive measures taken for permissive HTN in the setting of presumed CVA, however patient's BP returned to normal range on its own with SBP this morning of 110. MRI scan of the brain on 08/12/17 revealed multiple acute infarcts in the territory of the left middle cerebral artery particularly involving the anterior left temporal lobe. Also revealed several old infarcts in the right cerebral hemisphere. Certainly these findings are consistent with a cardioembolic source. We know that she was newly diagnosed with A. fib back in early June. 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 Currently she been continued on aspirin and Xarelto. [facility] neurosurgery contacted for possible transfer and evaluation for possible anuerysm. Patient accepted by primary service for admission. Currently pending bed placement. Discharge discussed with: patient, family, nurse - Time Spent with Patient Total time spent providing and/or coordinating discharge services: Greater than 30 minutes (45mins) - Discharge Medications Home Medications: Allopurinol [Zyloprim 300 MG] 300 mg PO DAILY 06/21/15 [History] Cyanocobalamin (B-12) [Vitamin B12] 1,000 mcg IM QWEEK 06/21/15 [History] cloNIDine HCl [CloNIDine HCl] 0.1 mg PO DAILY 06/22/15 [History] Aspirin Enteric Coated [Aspirin EC] 81 mg PO DAILY #30 tablet.dr 06/23/15 [Rx] Diltiazem CD (24hr) [Cardizem CD] 240 mg PO DAILY #30 cap.er.24h 06/23/15 [Rx] Liothyronine Sodium [Cytomel] 5 mcg PO DAILY 08/11/17 [History] Rivaroxaban [Xarelto] 15 mg PO DAILY 08/11/17 [History] Allergies/Adverse Reactions: 3 Allergy/AdvReac Type Severity Reaction Status Date / Time No Known Allergies Allergy Verified 08/11/17 13:46 Date of admission: 08/11/17 18:44 Primary care physician: Anibal Salas Consults: 08/11/17 18:47 Consult to Speech Therapy [CONS] Routine Comment: Evaluate, develop and implement POC Reason for Consult: Swallowing eval for CVA Call Completed: No 08/11/17 18:48 Consult to Physical Therapy [CONS] Routine Comment: Evaluate, develop and implement POC Reason for Consult: Home safety secondary to CVA Does patient have active BEDREST order?: No Is patient medically & hemodynamically stable?: Yes Patient assessed for mobility or mobilized this visit?: No 08/13/17 07:59 Consult to Occupational Therapy [CONS] Routine Comment: Evaluate, develop and implement POC Reason for Consult: Stroke Does patient have active BEDREST order?: No Is patient medically & hemodynamically stable?: Yes Discharging clinician: Rose Brown Anticipated date of discharge: 08/13/17 - Constitutional Vitals: Temp Pulse Resp BP Pulse Ox 98.3 F 74 16 110/78 97 08/13/17 11:20 08/13/17 11:20 08/13/17 11:20 08/13/17 11:20 08/13/17 11:20 General appearance: Present: A&O X 0, no acute distress. Absent: answers questions appropriately - Head Head exam: Present: atraumatic, normal inspection, normocephalic - Eye Eye exam: Present: EOMI, normal appearance, PERRL, conjuntiva pink, sclera anicteric Pupils: Present: PERRL - ENT ENT exam: Present: mucous membranes moist - Neck Neck exam general surgery: Present: normal inspection, supple - Respiratory Respiratory exam: Present: CTAB. Absent: accessory muscle use, respiratory distress, stridor, wheezes - Cardiovascular Cardiovascular exam: Present: RRR, +S1, +S2. Absent: diastolic murmur, gallop, rubs, systolic murmur - GI/Abdominal GI/Abdominal exam: Present: normal bowel sounds, soft. Absent: distended, firm , guarding, tenderness - Extremities Exam Extremities exam: Present: warm. Absent: cyanotic, pedal edema, tenderness - Neurological Exam Neurological exam: Present: alert Additional comments: BUE strength (arnp and elbow flexion) 4/5 and equal bilaterally. BLE strength (hip, knee, ankle flexion) 3/5 and equal bilaterally. Patient aphasic, but does occasional nod yes or shake her head no for response. Able to follow simple commands of arnp and moving upper and lower extremities. Not able to complete CN testing. PERRLA and corneal reflex present. She is also able to point to request her coffee. - Skin Skin exam: Present: dry, intact, normal color. Absent: cyanosis, rash, warm - Patient Status Disposition: Transfer Short-Term Hosp Condition: Serious Functional capacity at discharge: bed bound Overall status at discharge: patient is not back to baseline - Discharge Instructions Instructions: Atrial Fibrillation (DC), Urinary Tract Infection in Women (DC), Hypothyroidism (DC), Ischemic Stroke (DC), Ischemic Stroke (GEN), Chronic Dysphagia (GEN), Chronic Hypertension (DC) Follow Up With: Anibal Salas DO [Primary Care Provider] - Forms: ED Satisfaction Letter - Diet and Activity Activity: as per physical therapy Diet: other (advanced soft chooped meat/ nectar thick no straws/ assist with meals. supplement with justino magic cup) <Rose Brown - Last Filed: 08/13/17 17:12> Orders not resulted at time of discharge: Pending orders 08/13/17 08:35 CT angio head [CT] Stat CT angio neck [CT] Stat Date of Encounter: 08/13/17 - Discharge Diagnosis (1) Cerebrovascular accident Status: Acute Qualifiers: CVA mechanism: unspecified Qualified Code(s): I63.9 - Cerebral infarction, unspecified (2) Paroxysmal atrial fibrillation Status: Acute (3) HTN (hypertension) Status: Acute Qualifiers: Hypertension type: essential hypertension Qualified Code(s): I10 - Essential (primary) hypertension (4) DVT prophylaxis Status: Acute (5) Hypothyroidism Status: Acute Qualifiers: Hypothyroidism type: unspecified Qualified Code(s): E03.9 - Hypothyroidism , unspecified Hospital course: Ms. Neumann is a 77 year old female - Time Spent with Patient Total time spent providing and/or coordinating discharge services: Date of admission: 08/11/17 18:44 Primary care physician: Anibal Salas Consults: 08/11/17 18:47 Consult to Speech Therapy [CONS] Routine Comment: Evaluate, develop and implement POC Reason for Consult: Swallowing eval for CVA Call Completed: No 08/11/17 18:48 Consult to Physical Therapy [CONS] Routine Comment: Evaluate, develop and implement POC Reason for Consult: Home safety secondary to CVA Does patient have active BEDREST order?: No Is patient medically & hemodynamically stable?: Yes Patient assessed for mobility or mobilized this visit?: No 08/13/17 07:59 Consult to Occupational Therapy [CONS] Routine Comment: Evaluate, develop and implement POC Reason for Consult: Stroke Does patient have active BEDREST order?: No Is patient medically & hemodynamically stable?: Yes - Constitutional Vitals: Temp Pulse Resp BP Pulse Ox 98.4 F 65 16 118/65 96 08/13/17 15:42 08/13/17 15:42 08/13/17 15:42 08/13/17 15:42 08/13/17 15:42 - Attending Attestation I examined this patient and my medical decision-making was reviewed with the Resident Physician. I agree with the documented findings, disposition and treatment plan as described except to the extent set forth below. I had in depth discussion with the patient's son and nephew. Patient had an MRI that showed multiple acute infarcts in left MCA, and old infarcts in right cerebral hemisphere. It is suspected that this is due to emboli. There was also noted an old hemorrhage at left occipital pole. 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 A CTA was set to be done but because of patient's renal function, it could not be performed. Given the complexity of patient situation, including acute infarcts with imaging showing an old hemorrhage and also a possible aneurysm of basilar artery, patient would be better suited transferred to a tertiary center. Son and nephew agree to this. We discussed there is a possibility that there may be no intervention or medical management given her complex situation. They verbalize understanding of this and do agree that a transfer to be best choice. They are aware that continuing current therapy will be continued and agree with continuing xarelto for now as she is high risk for recurring emboli. There are agreeing to continuing therapy. Prognosis is guarded.
[2017-08-13 15:45] VITALS: BP 118/65
== END 2017-08-13 16:58 | disposition short-term general hospital (02) | DRG 65 ==
LOC: EMEROO 11:44 → 2NENU 11:44
PROVIDERS: ADMIT Hospitalist; ATTEND Hospitalist